=== PATIENT | male | born 1975 | race Caucasian/White ===

== ENCOUNTER 2017-01-15 17:02 | Inpatient (IN) | payer OTHER ==
[~2017-01-15] VITALS: Ht 182.9 cm; Wt 122.5 kg
--- NOTE | ~2017-01-15 | CO ---
Unit #: [id number] #: [id number] Patient: BORA GREWAL JR [id number] [address] [address] [id number] I MR#: [id number] NAME: BORA GREWAL JR ROOM: 217 Age: 41 Sex: M Admission Date: 01/15/2017 : 1975 Attending Physician: Mindy Alcantara M.D. Primary Care Physician: Mervat Primary Care Physician Requesting Physician: Mindy Alcantara M.D. Consultation Date: 01/16/2017 CONSULTATION REPORT REASON FOR CONSULTATION 1. Left renal mass. 2. Left epididymal orchitis. CHIEF COMPLAINT Left scrotal pain. HISTORY OF PRESENT ILLNESS The patient is a 41-year-old male with left scrotal pain, which began approximately five days prior to admission. He describes the pain as severe and aching in the left hemiscrotum. He states that it radiates into his abdominal area. He states that he did not have fevers at home but by report he had a fever in the [facility] emergency room. He denies prior abscess of epididymitis. He denies dysuria or hematuria. He was also found on CT of the abdomen and pelvis with a left 3 cm lower pole mass. He had a contrasted CT scan only but it is concerning for a solid mass. He denies bone pain or weight loss. PAST MEDICAL HISTORY None. PAST SURGICAL HISTORY Appendectomy. MEDICATIONS AT HOME None. ALLERGIES None. SOCIAL HISTORY Negative for tobacco. Negative for alcohol. He does construction work. REVIEW OF SYSTEMS Twelve point review of systems was performed and is positive for a left testicular pain and nausea. Negative specifically for weight loss, bone pain, gross hematuria, dysuria or any trouble voiding. PHYSICAL EXAMINATION VITAL SIGNS: Temperature 98.7, blood pressure 131/69, pulse 77, respirations 16. GENERAL: He is a well developed white male in some discomfort but no acute distress. HEENT: Normocephalic and atraumatic. Unit #: [id number] #: [id number] Patient: BORA GREWAL JR NECK: Supple. No lymphadenopathy. Extraocular movements are intact. RESPIRATIONS: He has symmetric chest rise. His respirations are unlabored. HEART: He has a regular rate and rhythm. ABDOMEN: Soft, nontender, nondistended. EXTREMITIES: Moving all extremities well. No clubbing, cyanosis or edema. : He has a normal phallus. His left hemiscrotum is indurated and tender but there is no obvious or drainable abscess. DIAGNOSTIC STUDIES LABORATORY STUDIES: White blood cell count 19, creatinine 0.9. Urinalysis is consistent with pyuria. IMAGING STUDIES: CT scan of the abdomen and pelvis was reviewed, which is discussed in the HPI. He has a 3 cm left renal mass on the lower pole. Scrotal ultrasound shows a heterogenous left testicle with increased blood flow to the testicle and the epididymis most consistent with epididymal orchitis. ASSESSMENT AND PLAN 1. Left renal mass. We need to better image this with a CT renal mass protocol. We will also check a chest x-ray. Assuming this is enhancing renal mass he will likely need a left partial nephrectomy in the future. I briefly discussed robotic versus open options and this may be amenable to a robotic partial nephrectomy. 2. Acute epididymitis and orchitis. Will continue his IV antibiotics. I will add Toradol. I discussed the possibility for need for orchiectomy but I think that is premature at this point. 3. 1. Dictated by... Dimas Rose M.D. MILAD/jose TD: 01/16/2017 16:16 JOB #: [id number] CONSULTATION REPORT Page 1 of 1 X Dimas Rose MD X CONSULTATION REPORT
--- NOTE | ~2017-01-15 | US115 ---
[facility] A Service of [facility] & [facility] RADIOLOGY TEXT RESULTS PATIENT: BORA GREWAL JR LOCATION: [facility] 217- : 73 UNIT #: [id number] AGE: [address]: DILNA CAMPOS V SEX: M ORDER DR: [id number] [facility] [address] [place], [place] [address] [id number] I MR#: [id number] Acc #: [id number] NAME: BORA GREWAL : 1975 SEX: M STUDY DATE/TIME: 01/18/2017 14:31 UNIT: A ROOM: [facility] STUDY DESCRIPTION: US Scrotum and Contents Attending Physician: Dilan Campos M.D. Ordering Physician: Qasim Wright M.D. Primary Care Physician: Primary Care Physician No MEDICAL IMAGING REPORT This report is preliminary unless electronic signature is present EXAM Testicular ultrasound, 01/18/2017 INDICATIONS Left testicular swelling and pain symptoms for a week. TECHNIQUE Avalos-scale, color Doppler and spectral analysis of the testicles was performed bilaterally. No comparisons. FINDINGS The right testicle measures 2.9 cm x 2.4 cm x 4.2 cm and the left measures 3.2 cm x 3.1 cm x 2.8 cm. Both testicles demonstrate good flow at the time of the study. No distinct evidence of orchitis. The left epididymal head is hypervascular suggestive of epididymitis but should be correlated clinically. Probable complicated epididymal head cyst or small solid nodule in the left epididymal head measures 6 mm. There is an incidental tunica albuginea cyst or epididymal body cyst on the right measuring about 4-5 mm. There may be 2 or 3 small microliths in each testicle but there is no evidence of intratesticular mass on either side. No hydrocele. IMPRESSION 1. Imaging findings suspicious for acute epididymitis on the left. Correlate clinically. No distinct evidence of superimposed orchitis. 2. No peritesticular fluid collection or intratesticular mass. 3. Incidental tunica albuginea cyst on the right. 4. Probable small complicated cyst in the left epididymal head measures about 6 mm. This could less likely represent a small solid nodule. Consider interval followup ultrasound in 6-12 months for reassessment. 5. There appear to be 2 or 3 microliths present in each testicle. No significant evidence of diffuse microlithiasis. Correlate with risk factors in this patient as microliths have been associated with an STS. [facility] A Service of [facility] & [facility] RADIOLOGY TEXT RESULTS PATIENT: BORA GREWAL JR LOCATION: [place] [address] : [birth year] UNIT #: [id number] AGE: [address]: DILAN CAMPOS V SEX: M ORDER DR: increased risk of developing testicular malignancy. A followup ultrasound in 1 year could be performed for reassessment. Dictated by... Landon Limon M.D. THIS IS AN ELECTRONICALLY VERIFIED REPORT Landon Limon M.D. at 01/19/2017 1:44 PM ESTELLA/kalyani TD: 01/19/2017 04:27 JOB #: [id number] MEDICAL IMAGING REPORT Page 1 of 1 COPY
--- NOTE | ~2017-01-15 | CR63 ---
[facility] A Service of [facility] & [facility] RADIOLOGY TEXT RESULTS PATIENT: BORA GREWAL JR LOCATION: [facility] : 71 UNIT #: [id number] AGE: [address]: Mindy Alcantara MD SEX: M ORDER DR: [id number] [facility] [address] [place], [place] [address] [id number] I MR#: [id number] Acc #: [id number] NAME: BORA GREWAL JR : 1975 SEX: M STUDY DATE/TIME: 01/16/2017 10:42 UNIT: [facility] ROOM: [facility] STUDY DESCRIPTION: CR Chest 2 View Attending Physician: Mindy Alcantara M.D. Ordering Physician: Dimas Rose M.D. Primary Care Physician: Primary Care Physician No MEDICAL IMAGING REPORT This report is preliminary unless electronic signature is present EXAM Chest x-ray 2 views HISTORY Short of air, weakness and left renal mass, symptoms for 6 days. COMMENT Two views of the chest reviewed. There is no prior chest x-ray. There is no pleural effusion. There is a small amount of fairly linear airspace disease at lung bases which is likely atelectasis. The heart size is normal. There is no pneumothorax. No congestive failure. IMPRESSION Small amount of fairly linear airspace disease at lung bases is probably atelectasis. Otherwise, no active disease. Dictated by... Jeri Thompson M.D. THIS IS AN ELECTRONICALLY VERIFIED REPORT Jeri Thompson M.D. at 01/17/2017 7:55 AM MAITE/psc TD: 01/16/2017 21:30 JOB #: [id number] MEDICAL IMAGING REPORT Page 1 of 1 COPY
--- NOTE | ~2017-01-15 | CT5 ---
[facility] A Service of [facility] & [facility] RADIOLOGY TEXT RESULTS PATIENT: BORA GREWAL JR LOCATION: [facility] - : 71 UNIT #: [id number] AGE: [address]: Mindy Alcantara MD SEX: M ORDER DR: [id number] [place] [id number] [facility]. [place], [place] [address] [id number] I MR#: [id number] Acc #: [id number] NAME: BORA GREWAL JR : 1975 SEX: M STUDY DATE/TIME: 01/16/2017 11:02 UNIT: [facility] ROOM: 217 STUDY DESCRIPTION: CT Abdomen W Cont Attending Physician: Mindy Alcantara M.D. Ordering Physician: Dimas Rose M.D. Primary Care Physician: Primary Care Physician No MEDICAL IMAGING REPORT This report is preliminary unless electronic signature is present EXAM CT abdomen with and without contrast HISTORY 41-year-old male with incidental renal mass noted on CT. Patient diagnosed with epididymoorchitis. COMPARISON CT abdomen and pelvis 01/15/2017 FINDINGS Axial images performed through the abdomen pre- and post contrast. Arterial and delayed-phase imaging performed. Multiplanar reconstructed images reviewed. This CT exam was performed with one or more of the following radiation dose reduction techniques: Automatic exposure control, adjustment of mA and/or kV according to patient size, and iterative reconstruction. Lung bases remarkable for bibasilar atelectasis. Liver, spleen, gallbladder, pancreas and adrenal glands unremarkable. There is punctate calcification along the medial wall of the left renal mass. The mass is iso- to hypodense on the precontrast study. Following administration of IV contrast, there is enhancement of the lesion and this is compatible with a solid renal neoplasm, most likely representing a renal cell carcinoma. Right kidney unremarkable. Visualized GI tract appears normal. Osseous structures unremarkable. The lesion measures 3 x 3.3 x 3 cm in transverse dimensions. IMPRESSION 3.3 cm enhancing lesion off the lower pole of the left kidney, imaging features most compatible with a solid renal neoplasm, most likely representing renal cell carcinoma. Renal oncocytoma or other solid STS. [facility] A Service of [facility] & [facility] RADIOLOGY TEXT RESULTS PATIENT: BORA GREWAL JR LOCATION: [place] [address] : [birth year] UNIT #: [id number] AGE: [address]: Mindy Alcantara MD SEX: M ORDER DR: neoplasm considered less likely. Dictated by... Sumit Wong M.D. THIS IS AN ELECTRONICALLY VERIFIED REPORT Sumit Wong M.D. at 01/17/2017 7:13 AM MAITE/darnell TD: 01/16/2017 22:28 JOB #: [id number] MEDICAL IMAGING REPORT Page 1 of 1 COPY
--- NOTE | ~2017-01-15 | HP ---
Unit #: [id number] #: [id number] Patient: BORA GREWAL JR [id number] [address] [address] [id number] I MR#: [id number] NAME: BORA GREWAL JR ROOM: 217 Age: 41 Sex: M Admission Date: 01/15/2017 : 1975 Attending Physician: Mindy Alcantara M.D. Primary Care Physician: No Primary Care Physician HISTORY AND PHYSICAL CHIEF COMPLAINT Testicular pain. HISTORY OF PRESENT ILLNESS The patient is a 41-year-old male with no significant past medical history who presented to the emergency department at [facility] for evaluation of the above. The patient states that he started having pain in the left testicle on January 10, 2017. He states that he had increased swelling and pain that became acutely worse over the past 24 hours. He denies any trauma to the testicle. No discharge. He has had burning with urination over the past 24 hours. He states that he has had chills and undocumented fever. He denies any vomiting or diarrhea. The pain radiates to the lower abdomen. In the emergency department initial temperature was 98.6, pulse 88, blood pressure 122/76. CT of the abdomen and pelvis was done and showed a 3 cm mass in the left kidney concerning for possible renal cell carcinoma. Inflammatory change was noted in the left inguinal region and scrotum concerning for epididymoorchitis. There is no drainable fluid collection. Scrotal ultrasound was also done and showed findings concerning for epididymal orchitis. He was given Rocephin, azithromycin and Levaquin and transferred to [facility] for admission. Dr. Rose agreed to see the patient in consultation. PAST MEDICAL HISTORY The patient denies any medical problems. PAST SURGICAL HISTORY Appendectomy. SOCIAL HISTORY The patient lives alone. He works in construction. There is no tobacco, alcohol or illicit drug use. FAMILY HISTORY Notable for his mother having diabetes. ALLERGIES None. HOME MEDICATIONS None. Unit #: [id number] #: [id number] Patient: BORA GREWAL JR REVIEW OF SYSTEMS A complete review of systems is negative except as indicated in the HPI. The patient states that he did take some Klonopin this week that was not prescribed. He denies any change in his weight. No night sweats prior to this illness. The patient is sexually active. PHYSICAL EXAMINATION VITAL SIGNS: Temperature 98.6, pulse 88, blood pressure 122/76, respiratory rate 16, oxygen saturation 98% on room air. GENERAL: The patient is a male who is awake and alert, in no acute distress. HEENT: The head is atraumatic. Mucous membranes are moist. NECK: Supple. Trachea is midline. CARDIOVASCULAR: Regular rate and rhythm. RESPIRATORY: Lungs are clear to auscultation bilaterally with no increased work of breathing. ABDOMEN: Soft. He is tender to palpation in the left lower quadrant. Bowel sounds present in all 4 quadrants. GENITOURINARY: There is erythema, warmth, edema and tenderness to palpation involving the left scrotal area. NEUROLOGIC: The patient is awake and alert. He follows commands. PSYCHIATRIC: Mood and affect are normal. The patient is cooperative. SKIN: Skin of examined areas is warm and dry. DIAGNOSTIC TESTS IMAGING: CT of the abdomen and pelvis shows a 3-cm mass in the left kidney concerning for renal cell carcinoma, extensive inflammatory change in the left inguinal region and scrotum concerning for epididymoorchitis. Scrotal ultrasound was done and showed findings concerning for epididymoorchitis. LABORATORY: Complete blood count notable for white blood cell count of 17.2, hemoglobin and hematocrit of 13 and 37.6 respectively. Comprehensive metabolic panel notable for sodium of 135, potassium 3.2, glucose 128. Calcium is 8.5 but corrects when accounting for albumin of 3.4. I do not see a urinalysis. ASSESSMENT 1. The patient is a 41-year-old male with left epididymoorchitis. The patient received Rocephin, azithromycin and Levaquin in the emergency department. 2. Left renal mass. 3. Leukocytosis. 4. Hypokalemia. PLAN 1. Admit to med/surg. 2. Regular diet. 3. Normal saline at 100 mL an hour. 4. Blood cultures x2. 5. Urinalysis with culture and sensitivity if not done. 6. Urine for gonorrhea and chlamydia. 7. Rocephin and azithromycin pending further workup. 8. Consult Dr. Rose regarding epididymoorchitis and renal mass. 9. Check magnesium level and BMP now. 10. Potassium/magnesium protocol. 11. Repeat labs in the morning. Unit #: [id number] #: [id number] Patient: BORA GREWAL JR 12. Tylenol p.r.n. 13. Morphine p.r.n. 14. Zofran p.r.n. 15. Sequential compression devices for deep venous thrombosis prophylaxis. 16. CT renal protocol for further evaluation of renal mass. 17. Additional workup and consultants based on above. Dictated by Luz Kent/charissa TD: 01/16/2017 09:23 JOB #: [id number] HISTORY AND PHYSICAL Page 1 of 1 X Mindy Alcantara MD X HISTORY AND PHYSICAL
--- NOTE | ~2017-01-15 | DS ---
Unit #: [id number] #: [id number] Patient: BORA GREWAL JR [id number] [address] [address] [id number] I MR#: [id number] NAME: BORA GREWAL JR ROOM: 217 Age: 41 Sex: M Admission Date: 01/15/2017 : 1975 Discharge Date: 01/19/2017 Attending Physician: Ezra Soto M.D. Primary Care Physician: No Primary Care Physician DISCHARGE SUMMARY PERTINENT HISTORY AND HOSPITAL COURSE The patient is a 41-year-old man with no prior medical history presented to the hospital with symptoms of pain over his left testicle which had worsened over 3 days. At the hospital, the patient underwent a CAT scan of the abdomen and pelvis that demonstrated a 3 cm mass in the left kidney concerning for possible renal cell carcinoma. Inflammatory change was noted in the left inguinal region and scrotum concerning for epididymal orchitis. In the emergency room, he was given Rocephin, azithromycin and Levaquin. During his hospitalization, he was continued on Rocephin and doxycycline. During his admission, Urology was consulted. They recommended continuation of antibiotics with follow up as an outpatient in their office. Urine and blood cultures demonstrated no growth. At discharge, the patient is ambulating independently. Vitals stable. His left testicular swelling and tenderness has improved. DISCHARGE MEDICATIONS 1. Doxycycline 100 mg tab one p.o. b.i.d. for 10 days. 2. Percocet 5/325 mg tab one to two p.o. q.6 p.r.n. DISCHARGE INSTRUCTIONS Follow up with urologist, Dr. Rose in 10-14 days. Follow up with primary care physician. DISCHARGE DIAGNOSIS Left renal mass, left epididymal orchitis. Dictated by... Luz Mares/marlen TD: 01/20/2017 23:15 JOB #: [id number] Unit #: [id number] #: [id number] Patient: BORA GREWAL JR DISCHARGE SUMMARY Page 1 of 1 X X DISCHARGE SUMMARY
[2017-01-15 23:18] LABS: BUN/CREATININE RATIO 11.11; CALCIUM SERUM 8.4 mg/dL (8.4-10.2); CREATININE SERUM 0.9 mg/dL (0.6-1.4); GLOM FILT RATE Estimated 104.2 mL/min (>60); MAGNESIUM 2.2 mg/dL (1.6-3.0); POTASSIUM 3.8 mmol/L (3.5-5.1)
[2017-01-16] MEDS ORDERED: NO MEDICATIONS (03:11)
[2017-01-16 05:46] LABS: BASOPHIL% 0.2 % (0-2.5); EOSINOPHIL# 0.1 X10e3 (0-0.7); EOSINOPHIL% 0.4 % (0.0-7.0); HEMATOCRIT 37.6 % (38.0-50.0); HEMOGLOBIN 12.5 gm/dL (13.0-16.0); LYMPHOCYTE% 10.5 % (17.0-45.0); MEAN CELL VOLUME 90.1 FL (83-96); MEAN CORPUSCULAR HEMOGLOBIN 29.9 PG (28-34); MEAN CORPUSCULAR HGB CONC 33.2 g/dL (30-36); MEAN PLATELET VOLUME 8.4 FL (6.5-11.5); MONOCYTE# 1.7 X10e3 (0-1.0); NEUTROPHIL# 15.2 X10e3 (1.5-7.1); NEUTROPHIL% 79.9 % (40-75); PLATELET COUNT 274 X10e3 (140-420); RED BLOOD COUNT 4.18 X10e (3.90-5.60); RED CELL DISTRIBUTION WIDTH 12.8 % (11.0-15.5)
[2017-01-16 05:50] LABS: DIFF IND YES
[2017-01-16 06:05] LABS: POTASSIUM 4.2 mmol/L (3.5-5.1)
[2017-01-16 06:08] LABS: URINE SOURCE CLEAN CATCH
[2017-01-16 06:17] LABS: URINE APPEARANCE CLEAR; URINE BLOOD TRACE (NEG); URINE COLOR DK YELLOW; URINE GLUCOSE NEG (NEG); URINE KETONE NEG (NEG); URINE LEUKOCYTE ESTERASE 2+ (NEG); URINE NITRATE NEG (NEG); URINE PH 5.5 (5-8); URINE PROTEIN 1+ (NEG); URINE SPECIFIC GRAVITY 1.037 (1.003-1.035)
[2017-01-16 06:19] LABS: CULTURE INDICATED? YES; URINE BACTERIA AUWI NEG (NEGATIVE); URINE SQUAMOUS EPITHELIAL CELL NONE SEEN /[HPF]; UWBCS1 AUWI 100-200 (0-5)
[2017-01-16 06:57] LABS: URINE BILIRUBIN NEG (NEG)
[2017-01-16 06:58] LABS: U HYALINE CASTS AUWI 0-2 /[LPF]; URINE MUCUS PRESENT
[2017-01-16 07:07] LABS: PLATELET ESTIMATE NORMAL (NORMAL)
[2017-01-17 03:00] LABS: HEMATOCRIT 34.5 % (38.0-50.0); HEMOGLOBIN 11.5 gm/dL (13.0-16.0); MEAN CELL VOLUME 88.9 FL (83-96); MEAN CORPUSCULAR HEMOGLOBIN 29.6 PG (28-34); MEAN CORPUSCULAR HGB CONC 33.3 g/dL (30-36); MEAN PLATELET VOLUME 7.3 FL (6.5-11.5); RED BLOOD COUNT 3.89 X10e (3.90-5.60); RED CELL DISTRIBUTION WIDTH 12.6 % (11.0-15.5); WHITE BLOOD COUNT 14.4 X10e3 (4.0-10.5)
[2017-01-17 03:29] LABS: CALCIUM SERUM 8.4 mg/dL (8.4-10.2); CREATININE SERUM 0.7 mg/dL (0.6-1.4); GLOM FILT RATE Estimated 115.6 mL/min (>60); POTASSIUM 4.2 mmol/L (3.5-5.1)
[2017-01-18 02:05] LABS: HEMATOCRIT 34.8 % (38.0-50.0); HEMOGLOBIN 12.1 gm/dL (13.0-16.0); MEAN CELL VOLUME 88.7 FL (83-96); MEAN CORPUSCULAR HEMOGLOBIN 30.8 PG (28-34); MEAN CORPUSCULAR HGB CONC 34.7 g/dL (30-36); MEAN PLATELET VOLUME 7.6 FL (6.5-11.5); RED BLOOD COUNT 3.92 X10e (3.90-5.60); RED CELL DISTRIBUTION WIDTH 12.5 % (11.0-15.5); WHITE BLOOD COUNT 10.9 X10e3 (4.0-10.5)
[2017-01-18 02:28] LABS: BUN/CREATININE RATIO 15.71; CALCIUM SERUM 8.2 mg/dL (8.4-10.2); CREATININE SERUM 0.7 mg/dL (0.6-1.4); GLOM FILT RATE Estimated 115.6 mL/min (>60); POTASSIUM 4.1 mmol/L (3.5-5.1)
[2017-01-19 03:22] LABS: HEMATOCRIT 38.3 % (38.0-50.0); HEMOGLOBIN 13.1 gm/dL (13.0-16.0); MEAN CORPUSCULAR HEMOGLOBIN 30.4 PG (28-34); MEAN CORPUSCULAR HGB CONC 34.1 g/dL (30-36); MEAN PLATELET VOLUME 8.3 FL (6.5-11.5); RED BLOOD COUNT 4.3 X10e (3.90-5.60); RED CELL DISTRIBUTION WIDTH 12.4 % (11.0-15.5); WHITE BLOOD COUNT 10.2 X10e3 (4.0-10.5)
[2017-01-19 03:53] LABS: CALCIUM SERUM 8.9 mg/dL (8.4-10.2); CREATININE SERUM 0.9 mg/dL (0.6-1.4); GLOM FILT RATE Estimated 104.2 mL/min (>60); POTASSIUM 4.1 mmol/L (3.5-5.1)
[2017-01-19] MEDS ORDERED: DOXYCYCLINE HY100 M3 PO (14:48)
[2017-01-19] MEDS ORDERED: PERCOCET5/325 PO (14:48)
[2017-01-19] MEDS ORDERED: ACETAMINOPHEN650 M4 PO (14:50)
[2017-01-19 16:37] LABS: CHLAMYDIA TRACH Not Detected (Not Detected); N GONOR Detected (Not Detected)
== END 2017-01-19 17:45 | disposition home or self-care (01) | DRG 728 ==
LOC: C2A 18:28 → UNDOADMIN 18:28 → C2A 19:45
PROVIDERS: Family Medicine; Urology
DX: N45.3 Epididymo-orchitis (principal); N28.89 Other specified disorders of kidney and ureter; E87.6 Hypokalemia; Z83.3 Family history of diabetes mellitus
CPT/HCPCS: 71020; 74160; 76870; 80048; 81003; 83735; 84132; 85025; 85027; 87040; 87086; 87491; 87591; 93976; J0456; J0696; J1650; J1885; J2270; J2405; Q9967